=== PATIENT | male | born 1980 | race Hispanic/Latino ===

== ENCOUNTER 2019-12-11 23:05 | Inpatient (IN) | payer SELFPAY ==
[~2019-12-11] VITALS: Ht 170.2 cm; Wt 102.1 kg
[2019-12-11] MEDS ORDERED: TETRACAINE HCL 0.5% 4 ML OPHTH SOLN ONE (23:43)
[2019-12-11] MEDS ORDERED: NA BORATE/BORIC AC/H2O/NACL 120 ML OPHTH IRRIG SOLN ONE (23:43)
[2019-12-12] MEDS ORDERED: TETANUS/DIPHTHERIA TOXOID [ADULT] 0.5 ML VIAL IM ONE (00:03)
[2019-12-12 00:08] LABS: BASOPHILS % (AUTO) 0.3 % (0.0-5.0); EOSINOPHILS % (AUTO) 2.4 % (0.0-8.0); HEMATOCRIT 45.4 % (42-54); LYMPHOCYTES % (AUTO) 27.4 % (21.0-51.0); MEAN CORPUSCULAR HEMOGLOBIN 28.9 pg (27.0-33.0); MEAN CORPUSCULAR HGB CONC 32.6 g/dL (32.0-36.0); MEAN CORPUSCULAR VOLUME 88.7 fL (79-99); MONOCYTES % (AUTO) 7.6 % (3.0-13.0); NEUTROPHILS % (AUTO) 61.4 % (40.0-77.0); PLATELET COUNT (AUTO) 321 K/uL (130-400); RED BLOOD CELL COUNT(AUTO) 5.12 MIL/uL (4.50-6.20); RED CELL DISTRIBUTION WIDTH 14.1 % (11.0-15.5); WHITE BLOOD COUNT (AUTO) 7.5 K/uL (4.8-10.8)
[2019-12-12 00:19] LABS: POTASSIUM 3.5 mmol/L (3.5-5.1)
[2019-12-12 00:27] LABS: CREATININE 0.8 mg/dL (0.5-1.5)
[2019-12-12] MEDS ORDERED: ERYTHROMYCIN BASE 0.5% OPHTH OINT 1 GM TUBE ONE (00:42)
[2019-12-12 01:40] VITALS: BP 142/88
[2019-12-12] MEDS ORDERED: ACETAMINOPHEN-CODEINE 300/30MG TAB PO PRN ×2 (02:00)
[2019-12-12] MEDS ORDERED: CEFAZOLIN SODIUM 1 GM VIAL IVP SCH (02:00)
[2019-12-12] MEDS ORDERED: CEFAZOLIN SODIUM 1 GM VIAL ONE (02:26)
[2019-12-12 03:13] VITALS: BP 121/58
== END 2019-12-12 04:30 | disposition left against medical advice (07) | DRG 155 ==
LOC: EDH 23:05 → EDHIP 23:06 → 3DH 12-12 01:24
PROVIDERS: ADMIT Surgery Plastic and Reconstructive Surgery; ATTEND Surgery Plastic and Reconstructive Surgery
PROC: 3E0234Z Introduction of Serum, Toxoid and Vaccine into Muscle, Percutaneous Approach (ICD-10-PCS; principal; 2019-12-12)
DX: S02.2XXA Fracture of nasal bones, initial encounter for closed fracture (principal); S05.32XA Ocular laceration without prolapse or loss of intraocular tissue, left eye, initial encounter; I10 Essential (primary) hypertension; X58.XXXA Exposure to other specified factors, initial encounter; Y93.89 Activity, other specified; Y92.89 Other specified places as the place of occurrence of the external cause; Y99.8 Other external cause status; Z23 Encounter for immunization
CPT/HCPCS: 36415; 70450; 70486; 80048; 85025; 90714; G0378; J0690